=== PATIENT | male | born 1990 | race Caucasian/White ===

== ENCOUNTER 2021-05-21 05:29 | Emergency (ER) | payer OTHER, SELFPAY ==
[2021-05-21 05:29] VITALS: BP 133/68; PULSE 87; RESP 14; TEMP 36.5; O2SAT 100
--- NOTE | 2021-05-21 05:47 | ED.ABDPAIN ---
HPI - Abdominal Pain General Chief Complaint: Abdominal Pain Stated Complaint: PAIN Time Seen by Provider: 05/21/21 05:48 Source: patient and RN notes reviewed Mode of arrival: ambulatory Limitations: no limitations History of Present Illness HPI narrative: patient states he had generalized abdominal pain cramping 3 hours after he ate some shrimp and chicken with rice which was around midnight. He took some Advil and then woke up about an hour and a half ago with chills all over and body aches. Denies any cough, shortness of breath, urinary symptoms, headache, sore throat. MD elicited complaint: abdominal pain Pertinent past history: none Onset (ago): hour(s) (3) Pain Consistency: now resolved Location: diffuse Severity: moderate Quality: cramping Radiation: none Migration to: no migration Exacerbating factors: eating Relieving factors: nothing Associated symptoms: chills and other ( Myalgias) Treatments prior to arrival: NSAIDs Related Data Home Medications Medication Instructions Recorded Confirmed No Home Medications 05/21/21 05/21/21 Allergies Allergy/AdvReac Type Severity Reaction Status Date / Time No Known Allergies Allergy Verified 05/21/21 05:35 Review of Systems Review of Systems: All systems reviewed & are unremarkable except as noted in HPI and below PMFSH Past Medical History Medical History (Updated 05/21/21 @ 06:55 by Ramesh Acosta MD) No active medical problems Surgical History Surgical History (Updated 05/21/21 @ 05:56 by Ramesh Acosta MD) No pertinent past surgical history Social History Social History (Updated 05/21/21 @ 05:56 by Ramesh Acosta MD) Smoking status: Never smoker Alcohol intake: current Alcohol use details: rare Substance use: never Exam Const: General: healthy appearing, no acute distress and alert Nutritional Appearance: well nourished and obese morbidly obese Orientation/consciousness: patient oriented x3 HENMT: Head: normal to inspection Ears: external ears normal Eyes: Conjunctivae: conjunctivae normal Pupils: Equal, round and reactive pupils present EOM: EOMs intact bilaterally Neck: Neck: normal visual inspection Resp: Effort & Inspection: normal respiratory effort Auscultation: clear to auscultation bilaterally Cardio: Rate: regular rate Rhythm: regular rhythm GI: GI Palp: Yes Soft to palpation, No Tenderness to palpation present (GI) and No Guarding due to palpation present (GI) Auscultation: normal bowel sounds Back/Spine/Pelvis: Cervical Spine: cervical ROM normal Thoracic/Lumbar Spine: thoraco-lumbar ROM normal Skin: General skin exam: normal color Rashes: no rashes Neuro: General: patient oriented x3, moves all extremities, no meningeal signs, no focal motor deficits and CN's II-XI intact bilaterally Speech: normal speech Gait exam (Neuro): Normal gait present Extrem: General: normal to inspection and no clubbing, cyanosis or edema Psych: Appearance: grossly normal and well kempt Mental Status: mental status grossly normal Affect: normal affect Attitude: cooperative Thought content: Yes Normal thought content present Course Vital Signs Vital signs: Vital Signs Temperature 36.5 C 05/21/21 05:29 Pulse Rate 87 05/21/21 05:29 Respiratory Rate 14 05/21/21 05:29 Blood Pressure 133/68 05/21/21 05:29 Pulse Oximetry 100 05/21/21 05:29 Temperature 36.5 C 05/21/21 05:29 Pulse Rate 87 05/21/21 05:29 Respiratory Rate 14 05/21/21 05:29 Blood Pressure 133/68 05/21/21 05:29 Pulse Oximetry 100 05/21/21 05:29 MDM - Abdominal Pain Lab Data Attestation: I reviewed the patient's lab results. Discharge Plan Discharge Clinical Impression: Upper respiratory virus Patient Disposition: Home, Self-Care Condition: Stable Instructions: Viral Syndrome (ED) Prescriptions: No Action No Home Medications RF: 0 Follow-up/Referrals: UNKNOWN,DOCTOR [Sade
[2021-05-21 06:10] LABS: Hematocrit 44.1 % (40.0-54.0); Mean Corpuscular Hemoglobin 32.5 pg (27.0-31.0); Mean Corpuscular Volume 95.7 fL (78.0-102.0); Mean Platelet Volume 10.5 fl (8.7-11.0); Platelet Count Result 132 K/mm3 (150-420); Red Blood Count 4.61 M/mm3 (4.70-6.10); White Blood Count 3.9 K/mm3 (4.8-10.8)
[2021-05-21 06:26] LABS: Aspartate Amino Transferase < 10 U/L (15-37)
[2021-05-21 06:31] LABS: Lactic Acid Reflex 0.8 mmol/L (0.4-2.0)
[2021-05-21 06:32] LABS: Band Neutrophils Percent 0 % (0-6); Eosinophils Absolute Manual 0.03 K/mm3 (0.02-0.5); Eosinophils Percent Manual 1 % (1-6); Lymphocytes Absolute Manual 0.97 K/mm3 (1.1-4.5); Lymphocytes Percent Manual 25 % (18-44); Monocytes Absolute Manual 0.35 K/mm3 (0.1-0.90); Monocytes Percent Manual 9 % (3-9); Neutrophils Absolute Manual 2.53 K/mm3 (1.3-6.7); Neutrophils Percent Manual 65 % (46-73); Platelet Estimate Adequate (Adequate); Total Cells Counted 100
[2021-05-21 06:40] LABS: Alanine Aminotransferase 21 U/L (16-63); Albumin Level 3.5 g/dL (3.4-5.0); Alkaline Phosphatase 58 U/L (46-116); Anion Gap 9 mmol/L (8-16); Blood Urea Nitrogen 19 mg/dL (7-18); Calcium 8.3 mg/dL (8.5-10.1); Carbon Dioxide 27 mmol/L (21-32); Chloride 103 mmol/L (98-108); Estimated CRCL calculation 136 ml/min; Estimated Glomerular Filt Rate > 60; Glucose 108 mg/dL (70-99); Magnesium 1.9 mg/dL (1.8-2.4); Osmolality Calculated 291 mOsm/kg (285-295); Potassium 3.7 mmol/L (3.5-5.1); Sodium 139 mmol/L (136-145); Total Protein 6.7 g/dL (6.4-8.2)
[2021-05-21 06:46] VITALS: BP 112/60; PULSE 68; RESP 14; O2SAT 98
[2021-05-21 06:47] LABS: Influenza A QL RT-PCR Negative (Negative); Influenza B QL RT-PCR Negative (Negative); SARS-CoV-2 RNA PCR Negative (Negative)
== END 2021-05-21 07:00 | disposition home or self-care (01) ==
PROVIDERS: Emergency Provider Emergency Medicine
DX: J06.9 Acute upper respiratory infection, unspecified (principal); Z20.822 Contact with and (suspected) exposure to COVID-19
CPT/HCPCS: 36415; 80053; 83605; 83735; 85025; 86140; 87502; 99283; C9803; U0003; U0005